=== PATIENT | female | born 1975 | race Two or more races ===

== ENCOUNTER 2017-02-02 16:34 | Emergency (ER) | payer BC, OTHER ==
[~2017-02-02] VITALS: Ht 149.9 cm; Wt 54.5 kg
[2017-02-02] MEDS ORDERED: SODIUM CHLORIDE FLUSH 10ML SYR IVF ONE (17:00)
[2017-02-02] MEDS ORDERED: PLEASE ENTER HEIGHT AND WEIGHT MC SCH (17:00)
[2017-02-02] MEDS ORDERED: PLEASE ENTER ALLERGIES MC SCH ×2 (17:00)
[2017-02-02] MEDS ORDERED: DULO20CA45 PO (17:02)
[2017-02-02 18:00] VITALS: BP 144/80
== END 2017-02-02 18:02 | disposition home or self-care (01) ==
LOC: ED 17:45
DX: S40.012A Contusion of left shoulder, initial encounter (principal); X58.XXXA Exposure to other specified factors, initial encounter; Y93.89 Activity, other specified; Y99.8 Other external cause status; Y92.89 Other specified places as the place of occurrence of the external cause
CPT/HCPCS: 29105; 99284